=== PATIENT | male | born 1965 | race Caucasian/White ===

== ENCOUNTER 2016-12-28 05:35 | Day surgery (SDC) | payer BC ==
[2016-12-26 15:45] LABS: BASOPHILS % (AUTO) 0.5 % (0.0-2.0); EOSINOPHILS # (AUTO) 0.3 K/uL (0.0-0.4); EOSINOPHILS % (AUTO) 3.8 % (0.0-4.0); HEMATOCRIT 43.4 % (36-54); HEMOGLOBIN 14.8 g/dL (14.0-18.0); LYMPHOCYTES # (AUTO) 1.7 K/uL (1.0-5.5); LYMPHOCYTES % (AUTO) 21.9 % (20.5-51.5); MEAN CORPUSCULAR HEMOGLOBIN 31 pg (27-31); MEAN CORPUSCULAR HGB CONC 34 % (32-36); MEAN CORPUSCULAR VOLUME 92 fL (79.0-98.0); MONOCYTES # (AUTO) 0.6 K/uL (0.0-1.0); MONOCYTES % (AUTO) 7.7 % (1.7-9.3); NEUTROPHILS % (AUTO) 66.1 % (40.0-70.0); PLATELET COUNT (AUTO) 179 K/uL (130-430); RED BLOOD CELL COUNT(AUTO) 4.74 MIL/uL (4.2-6.2); RED CELL DISTRIBUTION WIDTH 11.7 % (9.0-15.0); WHITE BLOOD COUNT (AUTO) 7.6 K/uL (4.8-10.8)
[2016-12-26 15:52] LABS: CALCIUM 9.3 mg/dL (8.4-11.0); CREATININE 1.09 mg/dL (0.55-1.30); POTASSIUM 3.6 mmol/L (3.5-5.1)
[2016-12-26 15:57] LABS: INR 0.9 (0.80-1.20); PROTHROMBIN TIME 9.9 SECS (9.5-12.5)
[2016-12-26 16:13] LABS: BILIRUBIN,URINE NEGATIVE (NEGATIVE); BLOOD, URINE NEGATIVE (NEGATIVE); CLARITY/URINE CLEAR (CLEAR); COLOR,URINE YELLOW (YELLOW); GLUCOSE,URINE NEGATIVE (NEGATIVE); KETONES,URINE NEGATIVE (NEGATIVE); LEUKOCYTE ESTERASE ,URINE NEGATIVE (NEGATIVE); NITRITE, URINE NEGATIVE (NEGATIVE); PROTEIN URINE NEGATIVE (NEGATIVE); UROBILINOGEN,URINE 0.2 (0.2-1.0)
[~2016-12-28] VITALS: Ht 185.4 cm; Wt 104.3 kg
[2016-12-28] MEDS ORDERED: CEFAZOLIN 2 GM IVPB PREMIX 50 ML IV ONE ×2 (06:49→07:00)
[2016-12-28] MEDS ORDERED: LR 1,000 ML IV SCH (08:59)
[2016-12-28] MEDS ORDERED: MORPHINE 2 MG/ML INJ. SYRINGE IVP PRN ×3 (09:00)
[2016-12-28] MEDS ORDERED: METOCLOPRAMIDE HCL 10 MG/2 ML VIAL IVP PRN (09:00)
[2016-12-28] MEDS ORDERED: D5LR 1,000 ML IV SCH (09:49)
[2016-12-28 11:58] VITALS: BP_SYST 128
[2016-12-28] MEDS ORDERED: DIPHENHYDRAMINE HCL 25 MG CAPSULE PO PRN (12:00)
[2016-12-28] MEDS ORDERED: MORPHINE 4 MG/ML INJ. SYRINGE IVP PRN (12:00)
[2016-12-28] MEDS ORDERED: HYDROcodone/ACETAMIN 5-325 MG TAB (NORCO/ VICODIN) PO PRN (12:00)
== END 2016-12-28 13:30 | disposition home or self-care (01) ==
LOC: SDS 05:35 → SMU 05:35 → SDS 13:30
PROVIDERS: ATTEND Orthopaedic Surgery
DX: M75.101 Unspecified rotator cuff tear or rupture of right shoulder, not specified as traumatic (principal); M75.51 Bursitis of right shoulder; I10 Essential (primary) hypertension; E78.5 Hyperlipidemia, unspecified; E66.9 Obesity, unspecified
CPT/HCPCS: 29826; 29827; 36415; 71020; 80048; 81003; 85025; 85610; 85730; J0690; J7120